=== PATIENT | male | born 1995 | race Caucasian/White ===

== ENCOUNTER 2019-01-26 12:44 | Emergency (ER) | payer MEDICAID ==
[~2019-01-26] VITALS: Ht 188 cm; Wt 129.0 kg
[2019-01-26 14:16] VITALS: BP 115/60
== END 2019-01-26 14:17 | disposition home or self-care (01) ==
LOC: ER 12:44
DX: L05.91 Pilonidal cyst without abscess (principal)
CPT/HCPCS: 99283